=== PATIENT | female | born 1985 | race Caucasian/White ===

== ENCOUNTER 2020-02-21 07:07 | Inpatient (IN) | payer OTHER ==
[~2020-02-21 07:07] MED LIST: Lidocaine 1.5% with EPINEPHrine 1:200,000 5 ML Amp ONE
[2020-02-21] MEDS ORDERED: fentaNYL 100 MCG/2 ML SDV EPIDUR PRN ×2 (07:43→08:13)
[2020-02-21] MEDS ORDERED: Bupivacaine/fentaNYL/NS 100 ML Bag EPIDUR PRN ×2 (07:43→08:13)
[2020-02-21] MEDS ORDERED: diphenhydrAMINE 50 MG/ML SDV IVPUSH PRN ×2 (07:43→08:13)
[2020-02-21] MEDS ORDERED: ePHEDrine 50 MG/ML SDV IVPUSH PRN ×2 (07:43→08:13)
[2020-02-21] MEDS ORDERED: Ondansetron 8 MG in Sodium Chloride 0.9% 50 ML IV PRN (07:59)
[2020-02-21] MEDS ORDERED: Sodium Chloride 0.9% 10 ML Syringe FLUSH PRN (07:59)
[2020-02-21] MEDS ORDERED: Oxytocin/Lactated Ringers 10 UNIT/1,000 ML BAG IV SCH ×2 (08:00)
[2020-02-21] MEDS ORDERED: Ampicillin 2 GM AdvVial IV ONE (08:09)
--- NOTE | 2020-02-21 08:26 | PCM.PREANE ---
Preanesthetic Assessment - Anesthesia/Transfusion/Family Hx Anesthesia History: No Prior Anesthesia - Review of Systems General: No Symptoms Pulmonary: No Symptoms Cardiovascular: No Symptoms Gastrointestinal: No Symptoms Neurological: No Symptoms Other: Reports: None - Physical Assessment Vital Signs: BP: 111/83, HR 100, T: 99F, SpO2: 100% Height: 1.63 m Weight: 73.028 kg ASA Class: 2 Mental Status: Alert & Oriented x3 Airway Class: Mallampati = 1 Dentition: Reports: Normal Dentition Thyro-Mental Finger Breadths: 3 Mouth Opening Finger Breadths: 3 ROM/Head Extension: Full Lungs: Clear to Auscultation, Normal Respiratory Effort Cardiovascular: Regular Rate, Regular Rhythm - Allergies Allergies/Adverse Reactions: Allergies Allergy/AdvReac Type Severity Reaction Status Date / Time No Known Allergies Allergy Verified 02/21/20 08:08 - Acknowledgements Anesthesia Type Planned: Epidural Pt an Appropriate Candidate for the Planned Anesthesia: Yes Alternatives and Risks of Anesthesia Discussed w Pt/Guardian: Yes Pt/Guardian Understands and Agrees with Anesthesia Plan: Yes PreAnesthesia Questionnaire - CURRENT (IN HOUSE) MEDS Current Meds: Current Medications Diphenhydramine HCl (Benadryl) 25 mg IVPUSH Q6H PRN PRN Reason: pruritis Ephedrine Sulfate (Ephedrine Sulfate) 5 mg IVPUSH ASDIRECTED PRN PRN Reason: Hypotension Fentanyl (Sublimaze) 100 mcg EPIDUR Q3H PRN PRN Reason: Pain Fentanyl/Bupivacaine HCl (Fentanyl/Bupivacaine/Ns 2 Mcg-0.125% 100 Ml) 100 ml EPIDUR ASDIRECTED PRN PRN Reason: Pain Ampicillin Sodium 2 gm/ Sodium (Chloride) 100 mls @ 200 mls/hr IV ONETIME ONE Stop: 02/21/20 08:28 Ampicillin Sodium 1 gm/ Sodium (Chloride) 100 mls @ 200 mls/hr IV Q4H LILO Lactated Ringer's (Ringers, Lactated) 1,000 mls @ 100 mls/hr IV ASDIRECTED LILO Ondansetron HCl 8 mg/ Sodium (Chloride) 54 mls @ 100 mls/hr IV Q8H PRN PRN Reason: Nausea/Vomiting Oxytocin/Lactated Ringer's (Pitocin In Lr 10 Units/1,000 Ml) 10 unit in 1,000 mls @ 12 mls/hr IV TITRATE LILO; Protocol Oxytocin/Lactated Ringer's (Pitocin In Lr 10 Units/1,000 Ml) 10 unit in 1,000 mls @ 100 mls/hr IV .CONTINUOUS LILO Sodium Chloride (Saline Flush) 10 ml FLUSH ASDIRECTED PRN PRN Reason: Keep Vein Open Discontinued Medications Ampicillin Sodium (Ampicillin) Confirm Administered Dose 2 gm IV .[employer] ONE Stop: 02/21/20 08:10
[2020-02-21] MEDS: Lactated Ringers 1,000 ML IV SCH ×3 (08:32→13:49)
[2020-02-21] MEDS ORDERED: Ampicillin 2 GM in Sodium Chloride 0.9% 100 ML IV ONE (09:00)
[2020-02-21] MEDS ORDERED: Diphtheria,Pertussis(Acell),Tetanus Vaccine 0.5 ML Syringe IM ONE (12:30)
[2020-02-21] MEDS: Ampicillin 1 GM in Sodium Chloride 0.9% 100 ML IV SCH ×3 (13:32→21:26)
--- NOTE | 2020-02-21 14:01 | PCM.LDHP ---
L&D History of Present Illness - General Date of Service: 02/21/20 Admit Problem/Dx: Patient Status Order with Admit Dx/Problem 02/21/20 08:00 Patient Status [ADT] Routine Admission Diagnosis/Problem Admission Diagnosis/Problem 02/21/20 13:51 Krystle is a 34-year-old 1 para 0 white female at 40-2/7 weeks gestational age with an MARY of 02/19/2020 was admitted on the AM of 02/21/2020 for elective induction of labor. Source of Information: Patient History Limitations: Reports: No Limitations - History of Present Illness Introduction:: Krystle is a 34-year-old 1 para 0 white female at 40-2/7 weeks gestational age with an MARY of 02/19/2020 was admitted on the AM of 02/21/2020 for elective induction of labor.The procedure and process elective induction of labor was discussed with patient in detail. The procedure risks benefits, alternatives of care including long for natural onset of labor all discussed with patient. She appears to understand and wish to proceed. 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 MARY is 02/19/2020 as dated by an early ultrasound done on 07/15/2019 at 8-5/7 weeks gestational age. Last menstrual period is unknown. This ultrasound is supported by 2 other ultrasounds done on 08/12/2019 and 10/04/2019. Patient was seen on a regular basis. Course care. Her first visit was at 8 weeks and the patient was seen regularly per routine care. Her fundal height growth was appropriate, vital signs remained stable throughout the course and her weight gain was from 129 pounds to 165 pounds for a 36 pound gain. Patient's menarche was at approximately age 13. Cycles every 30 days. Not using any control to conception. No significant STI history in the past. Patient is rubella immune. She had her influenza vaccination on 09/06/2019. Patient desires an epidural in labor and delivery. She is group B strep positive and has no significant allergies. She plans to breast-feed. She has a mole that she would like removed in the period. Laboratory testing in shows blood to be A positive with a negative antibody screen. Her hemoglobin was 12.8 g/dL. Platelets 275,000. She is rubella immune. RPR is nonreactive. Hepatitis B surface antigen and HIV assays were both negative. Second trimester labs showed hemoglobin 12.3 g/dL and platelets 256,000. One-hour GTT was elevated at 172. Her three-hour glucose tolerance test however was normal with fasting blood sugar of 86. Her 1 hour glucose was 147. Her chart glucose is 130. And her three-hour glucose was 49. GC and chlamydia were unremarkable. Group B strep screen was positive. Allergies: None Medications: 1. vitamins 1 daily 2. Calcium supplement 750 mg daily Past medical history: Distant history of UTI. Past surgical history: Unremarkable Family history: Patient is unsure of family history she is adopted from [place] at age 13. Review of systems: In general patient has no complaints. He has been active. She 's had some bloody show but no significant contractions prior to admission Skin: Negative Lungs: No infectious symptoms or shortness of breath Cardiovascular: No chest pain or exercise intolerance Breasts: Changes associated with . Patient plans to breast-feed. GI: Negative : Body habitus changes associated with including increasing fundal height. Musculoskeletal: Negative Neurological: Negative In general the patient is well-developed, well-nourished, pleasant female of stated age in no acute distress. On last evaluation in clinic on 02/17/2020 patient blood pressure 110/58. Weight was 165.6 pounds with pregravid weight of 129 pounds. Height is 5 feet 4 inches. Prepregnancy body mass index is 21.3. Skin is warm dry without lesions. HEENT, neck and back within normal limits. Lungs are clear with good breath sounds in all lung addison. Cardiovascular exam shows regular and rhythm without murmurs. Breasts exam is deferred having benign first visit found to be normal. It is not repeated at this time. Patient does plan to breast-feed. Abdomen is gravid with fundal height on last evaluation in clinic at 40 cm. Baby in vertex presentation by Crow maneuvers. Genital per digital exam shows cervix at 2 cm, 60% effaced, soft, -3, mid position. Artificial rupture membranes is undertaken with resultant clear amniotic fluid. Extremities and neurological exam are grossly within normal limits. Pain Score: 9 - Related Data Allergies/Adverse Reactions: Allergies Allergy/AdvReac Type Severity Reaction Status Date / Time No Known Allergies Allergy Verified 02/21/20 08:08 Past Medical History - Past Health History Medical/Surgical History: Denies Medical/Surgical History Social & Family History - Family History Family Medical History: Unobtainable - Tobacco Use Smoking Status *Q: Former Smoker Years of Tobacco use: 14 Packs/Tins Daily: 1 Used Tobacco, but Quit: Yes Month/Year Tobacco Last Used: 07/2019 - Caffeine Use Caffeine Use: Reports: Soda - Recreational Drug Use Recreational Drug Use: No H&P Review of Systems - Review of Systems: Review Of Systems: See Below L&D Exam - Exam Exam: See Below - Vital Signs Vital Signs: Last Vital Signs Temp 37.2 C 02/21/20 07:59 Pulse 102 H 02/21/20 07:59 Resp 18 02/21/20 07:59 BP 111/83 02/21/20 07:59 Pulse Ox 100 02/21/20 07:59 Weight: 73.028 kg - Patient Data Lab Results Last 24 hrs: Laboratory Results - last 24 hr 02/21/20 Range/Units 08:23 WBC 14.25 H (3.98-10.04) K/mm3 RBC 4.36 (3.98-5.22) M/mm3 Hgb 13.4 (11.2-15.7) gm/dl Hct 38.8 (34.1-44.9) % MCV 89.0 (79.4-94.8) fl MCH 30.7 (25.6-32.2) pg MCHC 34.5 (32.2-35.5) g/dl RDW Std Deviation 42.7 (36.4-46.3) fL Plt Count 248 (182-369) K/mm3 MPV 9.9 (9.4-12.3) fl Neut % (Auto) 74.8 H (34.0-71.1) % Lymph % (Auto) 14.2 L (19.3-51.7) % [place] % (Auto) 9.8 (4.7-12.5) % Eos % (Auto) 0.7 (0.7-5.8) Baso % (Auto) 0.1 (0.1-1.2) % Neut # (Auto) 10.64 H (1.56-6.13) K/mm3 Lymph # (Auto) 2.03 (1.18-3.74) K/mm3 [place] # (Auto) 1.40 H (0.24-0.36) K/mm3 Eos # (Auto) 0.10 (0.04-0.36) K/mm3 Baso # (Auto) 0.02 (0.01-0.08) K/mm3 Result Diagrams: 02/21/20 08:23 Problem List Initiated/Reviewed/Updated: Yes Orders Last 24hrs: Active Orders 24 hr Category Date Time Status Patient Status [ADT] Routine ADT 02/21/20 08:00 Active Activity as Tolerated [RC] PFP Care 02/21/20 07:59 Active Communication Order [RC] ASDIRECTED Care 02/21/20 07:59 Active Heart Tones [RC] ASDIRECTED Care 02/21/20 08:00 Active Non Stress Test [RC] PER UNIT ROUTINE Care 02/21/20 07:59 Active Notify Provider [RC] ASDIRECTED Care 02/21/20 07:43 Active Notify Provider [RC] ASDIRECTED Care 02/21/20 08:13 Active Notify Provider [RC] PFP Care 02/21/20 07:59 Active Notify Provider [RC] PRN Care 02/21/20 07:59 Active Peripheral IV Care [RC] . DIRECTED Care 02/21/20 08:00 Active Pump Management, Intrathecal [RC] ASDIRECTED Care 02/21/20 08:02 Active Vaccines to be Administered [RC] PER UNIT ROUTINE Care 02/21/20 11:39 Active Vital Signs [RC] PER UNIT ROUTINE Care 02/21/20 07:59 Active Regular Diet [DIET] Diet 02/21/20 Breakfast Active BLOOD BANK HOLD SPECIMEN [BBK] Stat Lab 02/21/20 07:59 Ordered RAPID PLASMA REAGIN,RPR [CHEM] Routine Lab 02/21/20 08:23 Received Ampicillin 1 gm Med 02/21/20 13:00 Active Sodium Chloride 0.9% [Normal Saline] 100 ml IV Q4H Bupivacaine/fentaNYL/NS [fentaNYL/Bupivacaine/NS 2 MCG- Med 02/21/20 08:13 Active 0.125% 100 ML] 100 ml EPIDUR ASDIRECTED PRN Lactated Ringers [Ringers, Lactated] 1,000 ml Med 02/21/20 08:00 Active IV ASDIRECTED Ondansetron [Zofran] 8 mg Med 02/21/20 07:59 Active Sodium Chloride 0.9% [Normal Saline] 50 ml IV Q8H Oxytocin/Lactated Ringers [Pitocin in LR 10 Units/1,000 Med 02/21/20 08:00 Active ML] 10 unit in 1,000 ml IV .CONTINUOUS Oxytocin/Lactated Ringers [Pitocin in LR 10 Units/1,000 Med 02/21/20 08:00 Active ML] 10 unit in 1,000 ml IV TITRATE Sodium Chloride 0.9% [Saline Flush] Med 02/21/20 07:59 Active 10 ml FLUSH ASDIRECTED PRN diphenhydrAMINE [Benadryl] Med 02/21/20 08:13 Active 25 mg IVPUSH Q6H PRN ePHEDrine [ePHEDrine sulfate] Med 02/21/20 08:13 Active 5 mg IVPUSH ASDIRECTED PRN fentaNYL [Sublimaze] Med 02/21/20 08:13 Active 100 mcg EPIDUR Q3H PRN Electronic Heart Tones Ext w TOCO [WOMSER] Oth 02/21/20 07:59 Ordered Routine Electronic Heart Tones Internal [WOMSER] Per Unit Oth 02/21/20 07:59 Ordered Routine Peripheral IV Insertion Adult [OM.PC] Routine Oth 02/21/20 07:59 Ordered Resuscitation Status Routine Resus Stat 02/21/20 07:59 Ordered Medication Orders Diphenhydramine HCl (Benadryl) 25 mg IVPUSH Q6H PRN PRN Reason: pruritis Ephedrine Sulfate (Ephedrine Sulfate) 5 mg IVPUSH ASDIRECTED PRN PRN Reason: Hypotension Fentanyl (Sublimaze) 100 mcg EPIDUR Q3H PRN PRN Reason: Pain Last Admin: 02/21/20 12:31 Dose: 100 mcg Fentanyl/Bupivacaine HCl (Fentanyl/Bupivacaine/Ns 2 Mcg-0.125% 100 Ml) 100 ml EPIDUR ASDIRECTED PRN PRN Reason: Pain Last Admin: 02/21/20 12:31 Dose: 100 ml Ampicillin Sodium 1 gm/ Sodium (Chloride) 100 mls @ 200 mls/hr IV Q4H LILO Last Admin: 02/21/20 13:32 Dose: 200 mls/hr Lactated Ringer's (Ringers, Lactated) 1,000 mls @ 100 mls/hr IV ASDIRECTED LILO Last Admin: 02/21/20 13:49 Dose: 100 mls/hr Infusion: 02/21/20 13:49 Dose: 100 mls/hr Admin: 02/21/20 12:36 Dose: 100 mls/hr Infusion: 02/21/20 12:36 Dose: 100 mls/hr Admin: 02/21/20 08:32 Dose: 100 mls/hr Ondansetron HCl 8 mg/ Sodium (Chloride) 54 mls @ 100 mls/hr IV Q8H PRN PRN Reason: Nausea/Vomiting Oxytocin/Lactated Ringer's (Pitocin In Lr 10 Units/1,000 Ml) 10 unit in 1,000 mls @ 12 mls/hr IV TITRATE LILO; Protocol Last Admin: 02/21/20 10:13 Dose: 2 munits/min, 12 mls/hr Oxytocin/Lactated Ringer's (Pitocin In Lr 10 Units/1,000 Ml) 10 unit in 1,000 mls @ 100 mls/hr IV .CONTINUOUS LILO Sodium Chloride (Saline Flush) 10 ml FLUSH ASDIRECTED PRN PRN Reason: Keep Vein Open Assessment/Plan Comment:: Assessment: 1. 40-2/7 week intrauterine patency, admitted for elective induction of labor 2. Group B strep screen positive. Patient has received her first dose of ampicillin per protocol 3. Patient plans to breast-feed. 4. Patient desires epidural in L&D for analgesia 5. Patient has had her influenza vaccination during this . 6. Patient is rubella immune. 7. Patient has a mole that she would like removed in the period. Plan: 1. Artificial rupture membranes induction with Pitocin augmentation as necessary. Anticipate normal spontaneous vaginal delivery. 2. Group B strep prophylaxis per protocol with ampicillin 3. Support breast feeding decision 4. RPR per protocol on admission 5. Routine labor care.
--- NOTE | 2020-02-22 00:05 | PCM.SN ---
- Free Text/Narrative Note: Delivery note: Krystle is a 34-year-old 1 para 0 white female at 40-2/7 weeks gestational age with an MARY of 02/19/2020 was admitted on the AM of 02/21/2020 for elective induction of labor. She underwent artificial rupture membranes induction with Pitocin augmentation later. She had an epidural for labor analgesia. She progressed steadily to complete cervical dilation by approximately 2110 hrs. The heart tones looked good and patient tolerated the labor well. She was on ampicillin per protocol for group B strep prophylaxis. At 2342 hrs. on 02/21/2020 Krystle delivered viable, fields, male with a weight of 3040 g (6 pounds 11.2 ounces), a length of 20.5 inches, Apgars of 7 and 9 in the direct occiput anterior position. Baby was placed on mom's abdomen. Nose and mouth were bulb suctioned. The Pitocin was increased to 500 mL per hour to facilitate increase in uterine tone and decrease likelihood of bleeding. The umbilical cord was allowed to pulsate for 2-3 minutes and then was clamped 2 and cut by the baby's father Humphrey. The umbilical cord had 3 vessels present within it. Her blood was obtained. The placenta delivered in a Celis presentation at 2348 hrs. It appeared intact and complete and was discarded per patient desire. Patient was noted to have one superficial posterior vaginal laceration which required a [id number] suture of 3-0 Monocryl to repair. Epidural analgesia was used for the repair anesthesia. Patient tolerated this well. She had 100 mL of estimated blood loss. She plans to breast-feed. Condition: Good
[2020-02-22] MEDS ORDERED: Witch Hazel Medicated Pads 40/Jar TOP PRN (00:40)
[2020-02-22] MEDS ORDERED: Docusate Sodium 100 MG Cap PO PRN (00:40)
[2020-02-22] MEDS ORDERED: Acetaminophen 325 MG Tab PO PRN (00:40)
[2020-02-22] MEDS ORDERED: Benzocaine/Menthol 20%-0.5% Spray 56 GM Canister TOP PRN (00:40)
[2020-02-22] MEDS: Ibuprofen 600 MG Tab PO PRN ×4 (01:24→23:03)
--- NOTE | 2020-02-22 08:22 | PCM48HPAN ---
Post Anesthesia Note - EVALUATION WITHIN 48HRS OF ANESTHETIC Vital Signs in Normal Range: Yes Patient Participated in Evaluation: Yes Respiratory Function Stable: Yes Airway Patent: Yes Cardiovascular Function Stable: Yes Hydration Status Stable: Yes Pain Control Satisfactory: Yes Nausea and Vomiting Control Satisfactory: Yes Mental Status Recovered: Yes Vital Signs: Last Vital Signs Temp 36.8 C 02/22/20 03:39 Pulse 79 02/22/20 03:39 Resp 14 02/22/20 03:39 BP 94/56 L 02/22/20 03:39 Pulse Ox 97 02/22/20 03:39
[2020-02-22] MEDS ORDERED: Prenatal Multivitamin with Calcium/Folic Acid/Iron Tab PO SCH (09:00)
[2020-02-23] MEDS: Ibuprofen 600 MG Tab PO PRN (03:08)
[2020-02-23] MEDS ORDERED: Diphtheria,Pertussis(Acell),Tetanus Vaccine 0.5 ML Syringe IM ONE (09:00)
--- NOTE | 2020-02-23 09:35 | PCM.SN ---
- Free Text/Narrative Note: Post Progress Note PPD #2 Subjective: Doing well overall. Ambulating without difficulty. Lochia minimal. Voiding without difficulty. Tolerating regular diet without nausea or vomiting. Pain controlled with oral medications. Breast-feeding with moderate difficulty with difficulty having infant latch. Also reports that she is having blisters form around the nipples. Denies any cracked skin or bleeding. Objective: Vitals: Vital Signs - 24 hr 02/22/20 02/22/20 02/23/20 15:21 20:16 02:47 Temperature 37.0 C 36.6 C Pulse, 71 71 66 Peripheral Respiratory 14 16 16 Rate Blood Pressure 109/75 111/71 126/82 O2 Sat by Pulse 100 100 100 Oximetry Physical Exam General: Alert and oriented, no acute distress Lungs: Clear to auscultation bilaterally Heart: Regular rate and rhythm Abdomen: Soft, minimal appropriate tenderness, non-distended, fundus midline, nontender, and 1 fingerbreadth below the umbilicus Extremities: Trace edema in bilateral lower extremities to mid shins ASSESSMENT: 34-year-old female -0-0-1 s/p normal vaginal delivery PPD #2 PLAN: Doing well Breast-feeding with some difficulty with having latching. Assist as needed Lochia minimal. Continue to monitor for appropriate lochia. Continue routine care Discharge home today Cory Rowe MD 9:34 AM 02/23/2020
--- NOTE | 2020-02-23 09:44 | PCM.DCSUM1 ---
Discharge Summary - Hospital Course Free Text/Narrative:: Delivery note: Krystle is a 34-year-old 1 para 0 white female at 40-2/7 weeks gestational age with an MARY of 02/19/2020 was admitted on the AM of 02/21/2020 for elective induction of labor. She underwent artificial rupture membranes induction with Pitocin augmentation later. She had an epidural for labor analgesia. She progressed steadily to complete cervical dilation by approximately 2110 hrs. The heart tones looked good and patient tolerated the labor well. She was on ampicillin per protocol for group B strep prophylaxis. At 2342 hrs. on 02/21/2020 Krystle delivered viable, fields, male infant with a weight of 3040 g (6 pounds 11.2 ounces), a length of 20.5 inches, Apgars of 7 and 9 in the direct occiput anterior position. Baby was placed on mom's abdomen. Nose and mouth were bulb suctioned. The Pitocin was increased to 500 mL per hour to facilitate increase in uterine tone and decrease likelihood of bleeding. The umbilical cord was allowed to pulsate for 2-3 minutes and then was clamped 2 and cut by the baby's father Humphrey. The umbilical cord had 3 vessels present within it. Her blood was obtained. The placenta delivered in a Celis presentation at 2348 hrs. It appeared intact and complete and was discarded per patient desire. Patient was noted to have one superficial posterior vaginal laceration which required a [id number] suture of 3-0 Monocryl to repair. Epidural analgesia was used for the repair anesthesia. Patient tolerated this well. She had 100 mL of estimated blood loss. She plans to breast-feed. Condition: Good HPI Initial Comments: Delivery note: Krystle is a 34-year-old 1 para 0 white female at 40-2/7 weeks gestational age with an MARY of 02/19/2020 was admitted on the AM of 02/21/2020 for elective induction of labor. She underwent artificial rupture membranes induction with Pitocin augmentation later. She had an epidural for labor analgesia. She progressed steadily to complete cervical dilation by approximately 2110 hrs. The heart tones looked good and patient tolerated the labor well. She was on ampicillin per protocol for group B strep prophylaxis. At 2342 hrs. on 02/21/2020 Krystle delivered viable, fields, male with a weight of 3040 g (6 pounds 11.2 ounces), a length of 20.5 inches, Apgars of 7 and 9 in the direct occiput anterior position. Baby was placed on mom's abdomen. Nose and mouth were bulb suctioned. The Pitocin was increased to 500 mL per hour to facilitate increase in uterine tone and decrease likelihood of bleeding. The umbilical cord was allowed to pulsate for 2-3 minutes and then was clamped 2 and cut by the baby's father Humphrey. The umbilical cord had 3 vessels present within it. Her blood was obtained. The placenta delivered in a Celis presentation at 2348 hrs. It appeared intact and complete and was discarded per patient desire. Patient was noted to have one superficial posterior vaginal laceration which required a qjqjiu-xa-syvuw suture of 3-0 Monocryl to repair. Epidural analgesia was used for the repair anesthesia. Patient tolerated this well. She had 100 mL of estimated blood loss. She plans to breast-feed. Condition: Good Brief History: Delivery note: Krystle is a 34-year-old 1 para 0 white female at 40-2/7 weeks gestational age with an MARY of 02/19/2020 was admitted on the AM of 02/21/2020 for elective induction of labor. She underwent artificial rupture membranes induction with Pitocin augmentation later. She had an epidural for labor analgesia. She progressed steadily to complete cervical dilation by approximately 2110 hrs. The heart tones looked good and patient tolerated the labor well. She was on ampicillin per protocol for group B strep prophylaxis. At 2342 hrs. on 02/21/2020 Krystle delivered viable, fields, male infant with a weight of 3040 g (6 pounds 11.2 ounces), a length of 20.5 inches, Apgars of 7 and 9 in the direct occiput anterior position. Baby was placed on mom's abdomen. Nose and mouth were bulb suctioned. The Pitocin was increased to 500 mL per hour to facilitate increase in uterine tone and decrease likelihood of bleeding. The umbilical cord was allowed to pulsate for 2 -3 minutes and then was clamped 2 and cut by the baby's father Humphrey. The umbilical cord had 3 vessels present within it. Her blood was obtained. The placenta delivered in a Celis presentation at 2348 hrs. It appeared intact and complete and was discarded per patient desire. Patient was noted to have one superficial posterior vaginal laceration which required a [id number]-bl-gkscz suture of 3-0 Monocryl to repair. Epidural analgesia was used for the repair anesthesia. Patient tolerated this well. She had 100 mL of estimated blood loss. She plans to breast-feed. Condition: Good Diagnosis: Stroke: No - Discharge Data Discharge Date: 02/23/20 Discharge Disposition: Home, Self-Care 01 Condition: Good - Referral to Home Health Primary Care Physician: Pradeep Man MD - Discharge Diagnosis/Problem(s) (1) 40 weeks gestation of SNOMED Code(s): 86164832 ICD Code: Z3A.40 - 40 WEEKS GESTATION OF Status: Acute Current Visit: Yes (2) Vaginal delivery SNOMED Code(s): 587774316 ICD Code: O80 - ENCOUNTER FOR FULL-TERM UNCOMPLICATED DELIVERY Status: Acute Current Visit: Yes (3) First degree perineal laceration during delivery SNOMED Code(s): 397578578 ICD Code: O70.0 - FIRST DEGREE PERINEAL LACERATION DURING DELIVERY Status: Acute Current Visit: Yes - Patient Summary/Data Complications: None Consults: None Hospital Course: Krystle Hermoslilo was admitted for elective induction of labor. On admission her cervix was dilated to 2 cm. She was GBS positive and was started on ampicillin for GBS prophylaxis. She received a total of 4 doses prior to delivery. She was given pitocin for augmentation. She was given an epidural for anesthesia. She had artificial rupture of membranes with clear fluid. She progressed to complete and began pushing. On 02/21/2020 she had a normal vaginal delivery of a live male at 23:42. Apgars of 7 and 9. Weight of 3040 g (6 pounds 11.2 ounces). Her course was uneventful. Her pain was well controlled and she had minimal lochia. She was ambulating, tolerating a regular diet and voiding normally. She was breast-feeding with moderate difficulty with having difficulty having latch. She was afebrile and her hematocrit was 38.8 on admission. She desired to be discharged home on the morning of PPD #2. Her blood type is A+. - Patient Instructions Diet: Regular Diet as Tolerated Activity: Apply Ice, As Tolerated Activity, Other: Nothing in the vagina for 6 weeks Driving: May Drive Today Showering/Bathing: May Shower Notify Provider of: Fever, Increased Pain, Swelling and Redness, Drainage, Nausea and/or Vomiting Other/Special Instructions: Please contact your physician's office if you have heavy vaginal bleeding enough to soak a pad in less than an hour for several hours. Monitor for any signs of an infection in the breasts with severe pain or redness of the breast. - Discharge Plan *PRESCRIPTION DRUG MONITORING PROGRAM REVIEWED*: Not Applicable *COPY OF PRESCRIPTION DRUG MONITORING REPORT IN PATIENT HAMZAH: Not Applicable Home Medications: Home Meds Ca Carb & Gluc/Mag Ox & Gluc [Calcium Magnesium Caplet] 1 tab PO DAILY 02/21/20 [History] Vit No.129/Iron/FA [ One Daily Tablet] 1 tab PO DAILY 02/21/20 [History] Acetaminophen [Tylenol] 650 mg PO Q6H PRN tablet 02/23/20 [Rx] Docusate Sodium [Colace] 100 mg PO BID PRN cap 02/23/20 [Rx] Ibuprofen [Motrin] 600 mg PO Q6H PRN tablet 02/23/20 [Rx] kanchan Gross [Tucks] 1 pad TOP ASDIRECTED PRN pad 02/23/20 [Rx] Patient Handouts: and Self-Care, Care After Vaginal Delivery Referrals: Pradeep Man MD [Primary Care Provider] - (Follow-up in 2 weeks for routine visit or earlier as needed.) - Discharge Summary/Plan Comment DC Time >30 min.: No - Patient Data Vitals - Most Recent: Last Vital Signs Temp 36.6 C 02/22/20 20:16 Pulse 66 02/23/20 02:47 Resp 16 02/23/20 02:47 BP 126/82 02/23/20 02:47 Pulse Ox 100 02/23/20 02:47 Weight - Most Recent: 73.028 kg I&O - Last 24 hours: Intake & Output 02/22/20 02/23/20 02/23/20 22:59 06:59 14:59 Intake Total 320 Balance 320 Med Orders - Current: Current Medications Acetaminophen (Tylenol) 650 mg PO Q4H PRN PRN Reason: mild pain or fever Benzocaine/Menthol (Dermoplast Pain Relief [place]) 0 gm TOP ASDIRECTED PRN PRN Reason: Perineal Comfort Measure Last Admin: 02/22/20 01:23 Dose: 1 canister Docusate Sodium (Colace) 100 mg PO BID PRN PRN Reason: Constipation Ibuprofen (Motrin) 600 mg PO Q4H PRN PRN Reason: Mild pain or fever Last Admin: 02/23/20 03:08 Dose: 600 mg Prenat Multivit/Icard/Iron/Folic Ac ( Plus Iron) 1 each PO DAILY LILO Last Admin: 02/22/20 08:31 Dose: Not Given Kanchan Litzy (Tucks) 1 pad TOP ASDIRECTED PRN PRN Reason: Perineal Comfort Measure Last Admin: 02/22/20 01:23 Dose: 1 tub Discontinued Medications Ampicillin Sodium (Ampicillin) Confirm Administered Dose 2 gm IV .STK-MED ONE Stop: 02/21/20 08:10 Last Admin: 02/21/20 09:24 Dose: Not Given Diphenhydramine HCl (Benadryl) 25 mg IVPUSH Q6H PRN PRN Reason: pruritis Diphenhydramine HCl (Benadryl) 25 mg IVPUSH Q6H PRN PRN Reason: pruritis Diphtheria/Tetanus/Acell Pertussis (Adacel) 0.5 ml IM .ONCE ONE Stop: 02/21/20 12:31 Diphtheria/Tetanus/Acell Pertussis (Adacel) 0.5 ml IM .ONCE ONE Stop: 02/23/20 09:01 Ephedrine Sulfate (Ephedrine Sulfate) 5 mg IVPUSH ASDIRECTED PRN PRN Reason: Hypotension Ephedrine Sulfate (Ephedrine Sulfate) 5 mg IVPUSH ASDIRECTED PRN PRN Reason: Hypotension Fentanyl (Sublimaze) 100 mcg EPIDUR Q3H PRN PRN Reason: Pain Fentanyl (Sublimaze) 100 mcg EPIDUR Q3H PRN PRN Reason: Pain Last Admin: 02/21/20 12:31 Dose: 100 mcg Fentanyl/Bupivacaine HCl (Fentanyl/Bupivacaine/Ns 2 Mcg-0.125% 100 Ml) 100 ml EPIDUR ASDIRECTED PRN PRN Reason: Pain Fentanyl/Bupivacaine HCl (Fentanyl/Bupivacaine/Ns 2 Mcg-0.125% 100 Ml) 100 ml EPIDUR ASDIRECTED PRN PRN Reason: Pain Last Admin: 02/21/20 12:31 Dose: 100 ml Ampicillin Sodium 2 gm/ Sodium (Chloride) 100 mls @ 200 mls/hr IV ONETIME ONE Stop: 02/21/20 09:29 Last Admin: 02/21/20 08:31 Dose: 200 mls/hr Ampicillin Sodium 1 gm/ Sodium (Chloride) 100 mls @ 200 mls/hr IV Q4H LILO Last Admin: 02/21/20 21:26 Dose: 200 mls/hr Lactated Ringer's (Ringers, Lactated) 1,000 mls @ 100 mls/hr IV ASDIRECTED LILO Last Admin: 02/21/20 13:49 Dose: 100 mls/hr Ondansetron HCl 8 mg/ Sodium (Chloride) 54 mls @ 100 mls/hr IV Q8H PRN PRN Reason: Nausea/Vomiting Oxytocin/Lactated Ringer's (Pitocin In Lr 10 Units/1,000 Ml) 10 unit in 1,000 mls @ 12 mls/hr IV TITRATE LILO; Protocol Last Titration: 02/21/20 16:40 Dose: 14 munits/min, 84 mls/hr Oxytocin/Lactated Ringer's (Pitocin In Lr 10 Units/1,000 Ml) 10 unit in 1,000 mls @ 100 mls/hr IV .CONTINUOUS LILO Last Admin: 02/22/20 01:22 Dose: 100 mls/hr Lidocaine/Epinephrine (Xylocaine-Mpf 1.5% W/Epinephrine 1:200,000) 5 ml .ROUTE .STK-MED ONE Stop: 02/21/20 00:01 Sodium Chloride (Saline Flush) 10 ml FLUSH ASDIRECTED PRN PRN Reason: Keep Vein Open
== END 2020-02-23 11:15 | disposition home or self-care (01) | DRG 807 ==
LOC: JD.OB 07:07 → OBSVTOIN 23:42 → JD.OB 23:42
PROVIDERS: ADMIT Obstetrics & Gynecology; ATTEND Obstetrics & Gynecology
PROC: 10E0XZZ Delivery of Products of Conception, External Approach (ICD-10-PCS; principal; 2020-02-21)
PROC: 10907ZC Drainage of Amniotic Fluid, Therapeutic from Products of Conception, Via Natural or Artificial Opening (ICD-10-PCS; 2020-02-21)
PROC: 0UQGXZZ Repair Vagina, External Approach (ICD-10-PCS; 2020-02-21)
PROC: 3E0R3BZ Introduction of Anesthetic Agent into Spinal Canal, Percutaneous Approach (ICD-10-PCS; 2020-02-21)
PROC: 3E0234Z Introduction of Serum, Toxoid and Vaccine into Muscle, Percutaneous Approach (ICD-10-PCS; 2020-02-23)
DX: O48.0 Post-term pregnancy (principal); Z37.0 Single live birth; Z3A.40 40 weeks gestation of pregnancy; O70.0 First degree perineal laceration during delivery; Z23 Encounter for immunization
CPT/HCPCS: 36415; 51701; 51702; 59025; 59409; 85025; 86592; 90715; A9270-GY; J0290; J2590; J3010; J7050; J7120

== ENCOUNTER → 2020-05-04 | Day surgery (SDC) | payer OTHER ==
[~2020-05-04] MED LIST changes: +Acetaminophen/HYDROcodone 325-5 MG Tab PO PRN; +Bupivacaine 0.25% 10 ML SDV ONE; +HYDROmorphone 0.5 MG/0.5 ML Syringe ONE; +Ketamine 500 mg/10 ML MDV ONE; +Lactated Ringers 1,000 ML IV SCH; +Lidocaine 1% 30 ML SDV ONE; +Lidocaine 1% 4 ML ONE; +Lidocaine 1%/Sod Bicarbonate in NS 8.4% 1 ML Syringe IDERM PRN; -Lidocaine 1.5% with EPINEPHrine 1:200,000 5 ML Amp ONE; +Midazolam 1 MG/ML 2 ML SDV ONE; +Ondansetron 4 MG/2 ML SDV ONE; +Propofol 200 MG/20 ML SDV ONE; +Sodium Chloride 0.9% 10 ML Syringe FLUSH PRN; +fentaNYL 100 MCG/2 ML SDV ONE
--- NOTE | 2020-05-04 11:43 | PCM.PREANE ---
Preanesthetic Assessment - Procedure Proposed Procedure: Bilateral great toenail removal - Anesthesia/Transfusion/Family Hx Anesthesia History: No Prior Anesthesia Family History of Anesthesia Reaction: No Transfusion History: No Prior Transfusion(s) - Review of Systems General: No Symptoms Pulmonary: No Symptoms Cardiovascular: No Symptoms Gastrointestinal: No Symptoms Neurological: No Symptoms Other: Reports: None - Physical Assessment ASA Class: 1 Mental Status: Alert & Oriented x3 Airway Class: Mallampati = 1 Dentition: Reports: Normal Dentition Thyro-Mental Finger Breadths: 3 Mouth Opening Finger Breadths: 3 ROM/Head Extension: Full Lungs: Clear to Auscultation, Normal Respiratory Effort Cardiovascular: Regular Rate, Regular Rhythm - Lab Values: Laboratory Last Values SARS Virus RNA (PCR) Negative (NEGATIVE) 05/02/20 11:00 - Allergies Allergies/Adverse Reactions: Allergies Allergy/AdvReac Type Severity Reaction Status Date / Time No Known Allergies Allergy Verified 02/21/20 08:08 - Acknowledgements Anesthesia Type Planned: MAC Pt an Appropriate Candidate for the Planned Anesthesia: Yes Alternatives and Risks of Anesthesia Discussed w Pt/Guardian: Yes Pt/Guardian Understands and Agrees with Anesthesia Plan: Yes PreAnesthesia Questionnaire - Past Health History Medical/Surgical History: Denies Medical/Surgical History - HOME MEDS Home Medications: Home Meds Calcium Carb,Gluc/Mag Ox,Gluc [Calcium Magnesium Caplet] 1 tab PO DAILY [History] Vit No.129/Iron/FA [ One Daily Tablet] 1 tab PO DAILY 02/21/20 [History] Acetaminophen [Tylenol] 650 mg PO Q6H PRN tablet 02/23/20 [Rx] Docusate Sodium [Colace] 100 mg PO BID PRN cap 02/23/20 [Rx] Ibuprofen [Motrin] 600 mg PO Q6H PRN tablet 02/23/20 [Rx] witch Ginny [Tucks] 1 pad TOP ASDIRECTED PRN pad 02/23/20 [Rx] Acetaminophen/HYDROcodone [[place] 325-5 MG] 1 tab PO Q6H PRN #5 tablet 05/04/20 [ Rx] - CURRENT (IN HOUSE) MEDS Current Meds: Current Medications Lactated Ringer's (Ringers, Lactated) 1,000 mls @ 125 mls/hr IV ASDIRECTED LILO Stop: 05/04/20 23:00 Lidocaine/Sodium Bicarbonate (Buffered Lidocaine 1% In Ns 8.4%) 0.25 ml IDERM ONETIME PRN PRN Reason: Prior to IV Start Stop: 05/04/20 18:00 Sodium Chloride (Saline Flush) 10 ml FLUSH ASDIRECTED PRN PRN Reason: Keep Vein Open Stop: 05/04/20 18:00 Discontinued Medications Bupivacaine HCl (Sensorcaine-Mpf 0.25%) Confirm Administered Dose 20 ml .ROUTE .STK-MED ONE Stop: 05/04/20 11:07 Fentanyl (Sublimaze) Confirm Administered Dose 100 mcg .ROUTE .STK-MED ONE Stop: 05/04/20 10:15 Lidocaine HCl (Xylocaine-Mpf 1%) Confirm Administered Dose 4 mls @ as directed .ROUTE .STK-MED ONE Stop: 05/04/20 10:17 Ketamine HCl (Ketalar) Confirm Administered Dose 500 mg .ROUTE .STK-MED ONE Stop: 05/04/20 10:16 Ketamine HCl (Ketalar) Confirm Administered Dose 500 mg .ROUTE .STK-MED ONE Stop: 05/04/20 10:17 Lidocaine HCl (Xylocaine-Mpf 1%) Confirm Administered Dose 30 ml .ROUTE .STK- MED ONE Stop: 05/04/20 11:07 Midazolam HCl (Versed 1 Mg/Ml) Confirm Administered Dose 2 mg .ROUTE .STK-MED ONE Stop: 05/04/20 10:15 Propofol (Diprivan 20 Ml) Confirm Administered Dose 600 mg .ROUTE .STK-MED ONE Stop: 05/04/20 10:15
--- NOTE | 2020-05-04 12:39 | PCM48HPAN ---
Post Anesthesia Note - EVALUATION WITHIN 48HRS OF ANESTHETIC Vital Signs in Normal Range: Yes Patient Participated in Evaluation: Yes Respiratory Function Stable: Yes Airway Patent: Yes Cardiovascular Function Stable: Yes Hydration Status Stable: Yes Pain Control Satisfactory: Yes Nausea and Vomiting Control Satisfactory: Yes Mental Status Recovered: Yes Vital Signs: 1231 108/65 70 16 99% 97.6F
--- NOTE | 2020-05-05 10:15 | PCM.OPNOTE ---
- General Post-Op/Procedure Note Date of Surgery/Procedure: 05/04/20 Operative Procedure(s): partial excision of bilateral big toe toenails Pre Op Diagnosis: ingrown toenails bilteral big toes Post-Op Diagnosis: Same Anesthesia Technique: Local, MAC Primary Surgeon: Brandon Carranza Anesthesia Provider: Loulou Campos Lighthouse Keeper: Joanne Maynard in mLs: 5 Complications: None Condition: Good
--- NOTE | 2020-05-05 15:18 | OR ---
DATE OF OPERATION: 05/04/2020 SURGEON: Brandon Carranza MD OPERATION PERFORMED: Partial excision of bilateral big toe toenails. PREOPERATIVE DIAGNOSIS: Ingrown toenails, bilateral great toes. POSTOPERATIVE DIAGNOSIS: Ingrown toenails, bilateral great toes. ANESTHESIA: Local MAC. ANESTHESIA PROVIDER: Daily Bhat. LOGISTICS ASSOCIATE: Joanne Maynadr PA-C ESTIMATED BLOOD LOSS: Less than 5 mL. COMPLICATIONS: None. CONDITION: Stable. DESCRIPTION OF PROCEDURE: The patient was identified in the preoperative holding area. Proper site was marked and identified by the surgeon. The patient was taken back to the operating theater where after adequate anesthesia, bilateral lower extremities were then sterilely prepped and draped in the usual sterile fashion. OR time- out was performed. The patient received 2 g IV of Ancef at this time. 1% lidocaine without epinephrine and 0.25% Marcaine without epinephrine were used to anesthetize the bilateral big toes. Esmarch was then used on the right foot first as a tourniquet on the lower leg. A [place] elevator was used to free the ingrown toenail portion on the medial side first. A tenotomy scissors was then used for resection all the way back to the eponychium proximally. At this time, this was then repeated on the lateral aspect of the right great toe, resecting the outer portion of the nail. Phenol was then used on both the medial and lateral excisional sites for hopeful no regrowth of the lateral and medial portions of the nail. Attention was turned to the left lower extremity. The tourniquet was taken down on the right and it was applied to the left. Again, a [place] elevator was utilized all the way back to the eponychium and it was excised on both the medial and lateral sides again, and phenol was used proximally to kill the nail plate in that region. Sterile soft dressings were then applied. The tourniquet was deflated. The patient was sent to PACU in stable condition. MMODAL /[id number]
== END | disposition home or self-care (01) ==
LOC: JD.SDS 10:59
PROVIDERS: ATTEND Orthopaedic Surgery
DX: L60.0 Ingrowing nail (principal); F17.290 Nicotine dependence, other tobacco product, uncomplicated; Z11.59 Encounter for screening for other viral diseases; Z79.899 Other long term (current) drug therapy
CPT/HCPCS: 11750; 81025; 87635; A9270; J2001; J2405; J2704; J3010; J3490; J7120; 00400; J1170; J2250; U0002

== ENCOUNTER 2024-04-21 16:50 | Emergency (ER) | payer OTHER ==
[2024-04-21 17:23] LABS: BASOPHILS PERCENT AUTO 0.5 % (0.0-1.0); EOSINOPHILS PERCENT AUTO 0.3 % (0.0-6.0); HEMATOCRIT 41.1 % (37.0-47.0); HEMOGLOBIN 14.3 gm/dl (12.0-16.0); IMMATURE GRAN ABSOLUTE AUTO 0.03 K/mm3 (0.00-0.05); IMMATURE GRAN PERCENT AUTO 0.4 % (0.0-0.4); LYMPHOCYTES ABSOLUTE AUTO 2.6 K/mm3 (1.0-4.8); MEAN CORPUSCULAR HEMOGLOBIN 31.2 pg (28.0-32.0); MEAN CORPUSCULAR HGB CONC 34.8 g/dl (32.0-36.0); MEAN CORPUSCULAR VOLUME 89.7 fl (83.0-99.0); MEAN PLATELET VOLUME 8.6 fl (9.4-12.3); MONOCYTES ABSOLUTE AUTO 0.4 K/mm3 (0.0-0.8); MONOCYTES PERCENT AUTO 4.9 % (0.0-8.0); NEUTROPHILS ABSOLUTE AUTO 4.6 K/mm3 (1.8-7.7); NEUTROPHILS PERCENT AUTO 59.9 % (41.0-71.0); PLATELET COUNT,PLT 320 K/mm3 (150-400); RED BLOOD CELL COUNT 4.58 M/mm3 (4.10-5.30); WHITE BLOOD CELL COUNT,WBC 7.73 K/mm3 (3.9-11.3)
[2024-04-21] MEDS: Sodium Chloride 0.9% 10 ML Syringe FLUSH ONE (17:32)
[2024-04-21] MEDS: Iopamidol 612 MG/ML 100 ML Bottle IVPUSH ONE (17:32)
[2024-04-21 17:36] LABS: A/G RATIO 1.3 (1-2); BILIRUBIN TOTAL 0.4 mg/dL (0.2-1.0); BUN/CREATININE RATIO 17.5 (14-18); CALCIUM 8.4 mg/dL (8.5-10.1); CREATININE 0.8 mg/dL (0.55-1.02); EST CRCL DRUG DOSING (CG) 81.53 mL/min; ETHANOL BLOOD MEDICAL 0.2 gm% (0.00); PROTEIN TOTAL,TP 7.2 g/dl (6.4-8.2)
[2024-04-21] MEDS: Sodium Chloride 0.9% 10 ML Syringe FLUSH PRN (18:00)
[2024-04-21] MEDS: Lidocaine 1% 10 ML MDV INJECT ONE (19:23)
== END 2024-04-21 19:50 | disposition home or self-care (01) ==
LOC: JD.ED 16:50
DX: S31.119A Laceration without foreign body of abdominal wall, unspecified quadrant without penetration into peritoneal cavity, initial encounter (principal); F10.920 Alcohol use, unspecified with intoxication, uncomplicated; Z79.899 Other long term (current) drug therapy; V86.55XA Driver of 3- or 4- wheeled all-terrain vehicle (ATV) injured in nontraffic accident, initial encounter; Y93.I9 Activity, other involving external motion
CPT/HCPCS: 12002; 36415; 70450; 71045; 72125; 74177; 80053; 80307; 83690; 84703; 85025; 99284; J3490; Q9967; 99283